=== PATIENT | male | born 1985 | race African-American/Black ===

== ENCOUNTER 2017-02-28 16:45 | Emergency (ER) | payer OTHER ==
[~2017-02-28] VITALS: Ht 177.8 cm; Wt 92.1 kg
[~2017-02-28 16:45] MED LIST: AZIT250T6 PO
[2017-02-28 17:16] VITALS: BP 143/99
--- NOTE | 2017-02-28 17:37 | PHYS DOC ---
Past Medical History Past Medical History: No Pertinent History Past Surgical History: Other Additional Past Surgical Histo: cervical fracture with fusion at c4-5 Alcohol Use: None Drug Use: None Adult General Chief Complaint Chief Complaint: THUMB HPI HPI Patient is a 31 year old male who presents with left thumb pain that began 17 days ago while playing basketball. Patient describes the pain as throbbing worse on flexion and extension of the thumb at the MIP joint. Review of Systems Review of Systems Constitutional: Denies fever or chills [] Musculoskeletal:left thumb pain Integument: Denies rash or skin lesions [] Neurologic: Denies headache, focal weakness or sensory changes [] Allergies Allergies Allergies Coded Allergies Type Severity Reaction Last Updated Verified No Known Drug Allergies 04/01/16 No Physical Exam Physical Exam Constitutional: Well developed, well nourished, no acute distress, non-toxic appearance. [] Skin: Warm, dry, no erythema, no rash. [] Back: No tenderness, no CVA tenderness. [] Extremities: Left thumb with no obvious deformity. No ecchymosis to the left thumb. Slight tenderness of the left thumb MIP joint. Full range of motion to the thumb. +2 left radial pulse. Cap refill less than 2 seconds the left thumb. Adequate radial sensation to the left thumb Neurologic: Alert and oriented X 3, normal motor function, normal sensory function, no focal deficits noted. [] Psychologic: Affect normal, judgement normal, mood normal. [] Current Patient Data Vital Signs Vital Signs Date Time Temp Pulse Resp B/P (MAP) Pulse Ox O2 Delivery O2 Flow Rate FiO2 02/28/17 17:16 98.5 61 18 97 Room Air 98.5 EKG EKG [] Radiology/Procedures Radiology/Procedures [] Course & Med Decision Making Course & Med Decision Making Pertinent Labs and Imaging studies reviewed. (See chart for details) Patient is in the ED with left thumb pain that began at 17 days ago while playing basketball. Left thumb x-rays interpreted by Dr. Mclaughlin were negative for any acute findings. He probably sprained his left thumb. Recommended ice elevation, recommended [id number] anti-inflammatories. Wrapping the thumb was recommended. He is using it with no difficulties. Provided orthopedic doctor for follow-up in one week. Dragon Disclaimer Dragon Disclaimer This electronic medical record was generated, in whole or in part, using a voice recognition dictation system. Departure Departure Impression: Primary Impression: Sprain of right thumb Disposition: HOME, SELF-CARE Condition: STABLE Referrals: NO PCP (PCP) JOVAN VALDEZ MD follow up in the next one week Patient Instructions: Thumb Sprain Additional Instructions: You were seen for right thumb sprain. Ice elevate the affected extremity. Take [id number] anti-inflammatories as needed for pain. Follow-up with the provided orthopedic doctor in the next one week if pain continues. Problem Qualifiers Primary Impression: Sprain of right thumb Encounter type: initial encounter Sprain of finger site: interphalangeal joint Qualified Codes: S63.621A - Sprain of interphalangeal joint of right thumb, initial encounter JOVANI SUAREZ APRN Feb 28, 2017 17:37
--- NOTE | 2017-03-01 07:28 | RAD ---
Hand plain films Indication: First digit injury at the basketball game Technique: AP hand and 2 views of the thumb Comparison: None Findings: No acute fracture or dislocation. No soft tissue abnormality. No evidence of arthritic process. Impression: No acute fracture or dislocation.
== END 2017-02-28 17:45 | disposition home or self-care (01) ==
LOC: ER 16:45
DX: S63.621A Sprain of interphalangeal joint of right thumb, initial encounter (principal); Z98.1 Arthrodesis status; X58.XXXA Exposure to other specified factors, initial encounter; Y93.67 Activity, basketball; Y92.89 Other specified places as the place of occurrence of the external cause; Y99.8 Other external cause status
CPT/HCPCS: 73140; 99284